=== PATIENT | female | born 1970 | race Caucasian/White ===

== ENCOUNTER 2020-03-25 15:34 | Emergency (ER) | payer MEDICAID ==
[~2020-03-25] VITALS: Ht 170.2 cm; Wt 62.0 kg
[2020-03-25 16:21] LABS: HEMATOCRIT 49.2 % (37.0-47.0); HEMOGLOBIN 17.1 g/dl (12.0-16.0); IMMATURE GRANULOCYTES 0.5 % (0.0-5.0); MEAN CELL VOLUME 86.3 fL CALC (80.0-100.0); MEAN CORPUSCULAR HGB CONC 34.8 g/dL CAL (32.0-36.0); NEUT# 9.83 thou/uL (2.00-7.15); RED BLOOD COUNT 5.7 mill/uL (4.20-5.60); RED CELL DISTRI WIDTH 13.1 % (11.5-15.5)
[2020-03-25 16:33] LABS: ALBUMIN 4.1 g/dL (3.2-5.0); ALKALINE PHOSPHATASE 107 u/l (38-126); ANION GAP 18 (6-22 (CALC)); BILIRUBIN, TOTAL 0.7 mg/dL (0.0-1.4); BUN 12 mg/dL (7-17); BUN/CREATININE RATIO 12 (12-20 (CALC)); CARBON DIOXIDE 18 mmol/l (22-30); CHLORIDE 99 mmol/l (95-108); GFR 59 ML/MIN (>=60 (CALC)); GFR FOR AFR.AMER. > 60 ML/MIN (>=60 (CALC)); LIPASE 223 u/l (23-300); POTASSIUM 2.9 mmol/l (3.5-5.1); SGOT/AST 20 u/l (14-36); SODIUM 132 mmol/l (137-146); TOTAL PROTEIN 6.9 g/dL (6.3-8.2)
[2020-03-25] MEDS ORDERED: TRAZODONE HYDR150 MG PO (17:06)
[2020-03-25] MEDS ORDERED: MESALAMINE DR1.2 GM PO (17:07)
[2020-03-25] MEDS ORDERED: DICYCLOMINE20 MG PO (17:08)
[2020-03-25] MEDS ORDERED: TOPIRAMATE ER50 MG PO (17:09)
[2020-03-25] MEDS ORDERED: BUSPIRONE10 MG PO (17:09)
[2020-03-25] MEDS ORDERED: ACAMPROSATE CA333 MG PO (17:10)
[2020-03-25] MEDS ORDERED: ANTI-DIARRHE2 M1 PO (17:11)
[2020-03-25] MEDS ORDERED: POTASSIUM CHLO10 ME1 PO (17:11)
[2020-03-25] MEDS ORDERED: VENLAFAXINE75 M2 PO (17:12)
[2020-03-25] MEDS ORDERED: IMITREX50 M1 PO (17:13)
[2020-03-25] MEDS ORDERED: VISTARIL 50MG C50 M1 PO (17:14)
[2020-03-25] MEDS ORDERED: BANOPHEN25 MG PO (17:15)
[2020-03-25] MEDS ORDERED: MELATONIN MAXIMU5 MG PO (17:15)
[2020-03-25 19:14] LABS: URINE BILIRUBIN - DIPSTICK NEGATIVE (NEGATIVE); URINE BLOOD DIPSTICK TRACE-INTACT (NEGATIVE); URINE COLOR YELLOW; URINE GLUCOSE - DIPSTICK NEGATIVE (NEGATIVE); URINE KETONE 15 mg/dL (NEGATIVE); URINE LEUK ESTERASE TRACE (NEGATIVE); URINE PH 6.5 (4.5-8.0); URINE PROTEIN - DIPSTICK NEGATIVE (NEG-TRACE); URINE SPECIFIC GRAVITY <=1.005; URINE UROBILINOGEN - DIPSTICK 0.2 E.U./dL (0.2)
[2020-03-25 19:16] LABS: URINE NITRITE - DIPSTICK POSITIVE (Negative)
[2020-03-25 19:26] LABS: URINE RBC 0-2 RBC/hpf (0-5); URINE SQUAMOUS EPITHELIAL CELL FEW EPI/hpf (0-FEW)
[2020-03-25] MEDS ORDERED: K-DUR/KLOR-CON20 MEQ PO (19:34)
[2020-03-25] MEDS ORDERED: LOMOTIL2.5 MG PO (19:34)
[2020-03-25] MEDS ORDERED: CIPROFLOXACN500 MG PO (19:34)
[2020-03-25 19:59] VITALS: BP 107/75
== END 2020-03-25 19:59 | disposition home or self-care (01) ==
LOC: ED 15:34
PROVIDERS: Student in an Organized Health Care Education/Training Program
DX: N39.0 Urinary tract infection, site not specified (principal); E87.6 Hypokalemia; I67.1 Cerebral aneurysm, nonruptured; B96.20 Unspecified Escherichia coli [E. coli] as the cause of diseases classified elsewhere
CPT/HCPCS: J2060; Q9967

== ENCOUNTER 2020-03-27 15:27 | Observation (INO) | payer MEDICAID ==
[~2020-03-27] VITALS: Ht 165.1 cm; Wt 58.0 kg
[~2020-03-27 15:27] MED LIST: ACAMPROSATE CA333 MG PO; ANTI-DIARRHE2 M1 PO; BANOPHEN25 MG PO; BUSPIRONE10 MG PO; CIPROFLOXACN500 MG PO; DICYCLOMINE20 MG PO; IMITREX50 M1 PO; K-DUR/KLOR-CON20 MEQ PO; LOMOTIL2.5 MG PO; MELATONIN MAXIMU5 MG PO; MESALAMINE DR1.2 GM PO; POTASSIUM CHLO10 ME1 PO; TOPIRAMATE ER50 MG PO; TRAZODONE HYDR150 MG PO; VENLAFAXINE75 M2 PO; VISTARIL 50MG C50 M1 PO
--- NOTE | 2020-03-27 15:35 | NUR ---
PATIENT TO ROOM VIA WHEELCHAIR AND PHYSICIAN AT BEDSIDE FOR EVAL
--- NOTE | 2020-03-27 15:47 | NUR ---
PT STATES HAVING INCREASED SOB, NAUSEA, DIZZINESS, AND HEADACHE FOR THE LAST TWO WEEKS. NIH 0. LUNGS CLEAR BI. AOX4. AFIBRILE. PT IS CRYING STATING THAT SHE IS SCARED. STATES HAVING PAIN 6/10 OF GENERALIZED ABD PAIN. WILL CONTINUE TO MONITOR
--- NOTE | 2020-03-27 16:30 | NUR ---
UPON REASSESSING, PT STATES THAT HER PAIN IS 6/10. ASKED FOR PO FLUIDS, NOTIFIED
[2020-03-27 16:35] LABS: HEMATOCRIT 45.2 % (37.0-47.0); HEMOGLOBIN 15.5 g/dl (12.0-16.0); IMMATURE GRANULOCYTES 0.6 % (0.0-5.0); MEAN CELL VOLUME 88.6 fL CALC (80.0-100.0); MEAN CORPUSCULAR HGB 30.4 pG CALC (26.0-32.0); MEAN CORPUSCULAR HGB CONC 34.3 g/dL CAL (32.0-36.0); NEUT# 7.55 thou/uL (2.00-7.15); RED BLOOD COUNT 5.1 mill/uL (4.20-5.60); RED CELL DISTRI WIDTH 13.1 % (11.5-15.5)
[2020-03-27 16:38] LABS: URINE BLOOD DIPSTICK TRACE-INTACT (NEGATIVE); URINE COLOR YELLOW; URINE GLUCOSE - DIPSTICK NEGATIVE (NEGATIVE); URINE KETONE >=80 mg/dL (NEGATIVE); URINE NITRITE - DIPSTICK NEGATIVE (Negative); URINE PROTEIN - DIPSTICK TRACE mg/dL (NEG-TRACE); URINE SPECIFIC GRAVITY 1.025; URINE UROBILINOGEN - DIPSTICK 0.2 E.U./dL (0.2)
[2020-03-27 16:41] LABS: URINE BILIRUBIN - DIPSTICK NEGATIVE (NEGATIVE); URINE LEUK ESTERASE SMALL (NEGATIVE)
[2020-03-27 16:56] LABS: URINE SQUAMOUS EPITHELIAL CELL MODERATE EPI/hpf (0-FEW)
[2020-03-27 17:12] LABS: ALBUMIN 3.9 g/dL (3.2-5.0); ALKALINE PHOSPHATASE 104 u/l (38-126); ANION GAP 18 (6-22 (CALC)); BILIRUBIN, TOTAL 0.5 mg/dL (0.0-1.4); BUN 8 mg/dL (7-17); BUN/CREATININE RATIO 8 (12-20 (CALC)); CARBON DIOXIDE 19 mmol/l (22-30); CHLORIDE 100 mmol/l (95-108); GFR 59 ML/MIN (>=60 (CALC)); GFR FOR AFR.AMER. > 60 ML/MIN (>=60 (CALC)); LIPASE 216 u/l (23-300); POTASSIUM 2.7 mmol/l (3.5-5.1); SGOT/AST 22 u/l (14-36); SODIUM 134 mmol/l (137-146); TOTAL PROTEIN 6.5 g/dL (6.3-8.2)
--- NOTE | 2020-03-27 17:13 | NUR ---
REPOSITIONED PT, DENIES ANY NEEDS AT THIS TIME
--- NOTE | 2020-03-27 18:30 | NUR ---
PT STATES THAT SHE HAS PAIN 01/03. NOTIFED
--- NOTE | 2020-03-27 19:14 | NUR ---
GAVE REPORT TO TONIO
[2020-03-27 20:00] VITALS: BP 106/63
--- NOTE | 2020-03-27 20:00 | NUR ---
PT ARRIVED TO MED SURG UNIT. APPEARS IN STABLE CONDITION. MALL MANAGER IN W/PT OBTAINING V/S. PT ORIENTED TO ROOM,CALL SYSTEM, LIGHTS AND BED.
--- NOTE | 2020-03-27 20:10 | NUR ---
HAND OFF REPORT WAS GIVEN TO DAMON BY NELLY BEFORE END OF SHIFT, PATIENT TAKEN TO INPATIENT TREATMENT ROOM 277 ON STRETCHER, NO C/O PAIN, NO S/S OF DISTRESS NOTED, RESPIRATIONS EVEN AND UNLABORED, PATIENT ON PORTABLE BORING MACHINE FEEDER, PATIENT MEDICATED FOR PAIN BEFORE BEING TAKEN TO INPATIENT TREATMENT ROOM.
--- NOTE | 2020-03-27 21:47 | NUR ---
Pt postassium infusion administered at this time. I educated pt that postassium will burn, but let me know if she observes any s/o edema or increased burning. Pt verbalized understanding.
--- NOTE | 2020-03-27 22:30 | NUR ---
PT CALLED TO REPORT THAT HER IV WAS BURNING TOO BAD. I TURNED THE POSTASSIUM DOWN TO 25, INFUSING WITH NORMAL SALINE, BUT PT CONTINUED TO CRY AND STATE "YOU HAVE TO STOP IT." IV potassium infusion discontinued at this time. site appears healthy, no s/o infiltration at this time or redness. cool pack provided. Will follow-up with attempts to restart infusion.
[2020-03-28] VITALS (9 sets, daily range): BP systolic 79–104; BP diastolic 38–61
--- NOTE | 2020-03-28 00:05 | NUR ---
UPON ENTERING ROOM, STAFF ANALYST IS OBTAINING V/S ASSESSED, I ASKED PT IF SHE WAS READY TO LET ME ADMINISTER K+ INFUSION. PT REPLIED, "I JUST WANT TO GO TO SLEEP." "MY STOMACH HURTS AGAIN AND I AM NAUSEOUS AGAIN." I DISCUSSED MEDICATIONS AND THE NEED FOR k+RIDER ADMINISTRATION. PT VERBALIZED UNDERSTANDING AND AGREED TO BE MEDICATED FOR PAIN AND NAUSEA AND TO REATTEMPT TO RUN THE K+. W/NS @250 AT THIS TIME. K+ RUNNING @25 AND NORMAL SALINE @250CC PER HR FOR COMFORT TO PT. ICEPACK PLACED ON PTS ARM. PT MEDICATED FOR NAUSEA AND PAIN PRIOR TO RESTARTING THE K+RIDER. PT INSTRUCTED TO CALL NEEDS ARISE.
--- NOTE | 2020-03-28 02:11 | NUR ---
PT SLEEPING, SHE AWOKE JUST ENOUGH TO RESPOND AND PROMPTLY RETURNED TO SLEEP. SHE STATED SHE WAS OKAY GETTING THE SECOND BAG ORDERED OF k+ IF I RUN IT SLOWLY I DID THE FIRST BAG ADMINISTERED @25MLS PER HR. aDMINISTERED SLOWLY W/NS @250. NO S/O DISTRESS NOTED AT THIS TIME. PT PROMPTLY RETURNED TO SLEEP PRIOR TO MY LEAVING THE ROOM
--- NOTE | 2020-03-28 04:52 | NUR ---
PT ASSESSED, COMMUNICATING AND WANTING TO "TRY AND USE THE RESTROOM" PT INSTRUCTED TO WAIT A LITTLE WHILE IF SHE CAN AND NOT TO GET UP BY HERSELF, I EXPLAINED TO HER THAT HER BP IS LOW AND SHE MAY FALL. KCL RUNNING @25 PER WHAT PT COULD TOLERATE AND IVF NS @250MLS/HR. PT C/O HEADACHE AND NOT BEING ABLE TO SLEEP. WILL FOLLOW-UP WITH BP RECHECK MANUAL.
--- NOTE | 2020-03-28 05:32 | NUR ---
I WAS CALLED TO PTS ROOM, SHE WAS UP TO RESTROOM WITH TIMBER SPRINKLER ASSISTING, PT IS CRYING C/O HEADACHE. I DISCUSSED WITH PT THAT SHE HAD VERY LOW BP AND I WAS UNABLE TO MEDICATE HER WITH MORPHINE YET. I ASKED PT ABOUT HER ABD PAIN/DENIED, DENIED NAUSEA AT THIS TIME. PT IS CRYING WANTING MORPHINE FOR HER HEAD. I OFFERED COOL PACK FOR COMFORT MEASURES/REFUSED. IVF ARE RUNNING 250MLS PER HR W/KCL RIDER @25MLS PER HR. PT LEFT IN BED W/LIGHTS DOWN AND TV OFF.
--- NOTE | 2020-03-28 07:00 | NUR ---
PT note Patient is screened for rehab intervention and no needs are identified at this time as she is continuing to be worked up by medical
--- NOTE | 2020-03-28 07:39 | NUR ---
RECIEVED REPORT FROM DMITRY JOSE. PT RESTING IN LOW FOWLERS POSITION UPON ENTERING ROOM. INTRODUCED SELF TO PT AND DISCUSSSED POC. PT IS A/O X3 BUT VERY EMOTIONAL. ASSESSMENT AND VITALS COMPLETED AT THIS TIME. BP 90/38, HR 86 ,O2 98% ON ROOM AIR. RESPIRATIONS ARE EVEN AND UNLABORED WITH NO SIGNS OF DISTRESS NOTED. LUNG SOUNDS ARE CLEAR. HEART RHYTHM IS NORMAL WITH TELE IN PLACE. BOWEL SOUNDS ARE ACTIVE IN ALL QUADRANTS, LAST REPORT BM 03/27/2020. RADIAL AND PEDAL PULSES ARE STRONG WITH NORMAL CAPILLARY REFILL. #20 IN RAC RUNNING WITH NS PER ORDER, SITE APPEARS HEALTHY AND PATENT.PT COMPLAINS OF 10/10 PAIN IN HEAD AND ABD. WRITTER INFORMED PT THAT OTHER MEDIACTION WOULD HAVE TO BE ORDERED DUE TO NOT BEING ABLE TO GIVE MORPHINE DUE TO BP. PT VERBAILZED UNDERSTANDING. BED PADDED DUE TO HISTORY OF SIEZURES. PT DENIES ANY ADDITIONAL NEEDS OR DISCOMFORTS. ALL SAFTEY PRECAUTIONS ARE IN PLACE WITH CALL LIGHT IN REACH. WILL CONTINUE TO MONITOR
[2020-03-28 09:02] LABS: ALKALINE PHOSPHATASE 83 u/l (38-126); BILIRUBIN, TOTAL 0.3 mg/dL (0.0-1.4); BUN 7 mg/dL (7-17); BUN/CREATININE RATIO 9 (12-20 (CALC)); CHLORIDE 112 mmol/l (95-108); CREATININE 0.8 mg/dL (0.5-1.0); GFR > 60 ML/MIN (>=60 (CALC)); GFR FOR AFR.AMER. > 60 ML/MIN (>=60 (CALC)); POTASSIUM 3.2 mmol/l (3.5-5.1); SGOT/AST 22 u/l (14-36); SODIUM 138 mmol/l (137-146); TOTAL PROTEIN 5.4 g/dL (6.3-8.2)
[2020-03-28 09:03] LABS: ALBUMIN 3.1 g/dL (3.2-5.0); ANION GAP 19 (6-22 (CALC)); CARBON DIOXIDE 10 mmol/l (22-30)
--- NOTE | 2020-03-28 10:12 | NUR ---
DR SYKES AT BEDSIDE DISCUSSING POC WITH PT
--- NOTE | 2020-03-28 11:04 | NUR ---
REASSESSMENT OF BP RESUTLING IN 104/51, HR 101. PT COMPLAINS OF 10/10 PAIN IN ABD AND HEAD. TORADAL TO BE ADMINISTERED. RESPRIATIONS ARE EVEN AND ANLABORED WITH NO SIGNS OF DISTRESS NOTED. PT IS VERY EMOTINAL. ICE PACK GIVEN TO PLACE ON HEAD. APPLE JUICE AND FRESH ICE ADMINISTERED. ALL SAFETY PRECAUTIONS REMAIN IN PLACE. WILL CONTINUE TO MONITOR
--- NOTE | 2020-03-28 11:18 | NUR ---
REASSESSMENT OF PAIN RESUTLING IN 02/03. PT STATES HEADACHE IS STILL PRESENT BUT NOT BAD. RESPIRATIONS ARE EVEN AND UNLABORED WITH NO DISTRESS NOTED. NEW ICE PACK GIVEN TO PT. ALL SFETY PRECAUTIONSA RE IN PLACE. WILL CONTINUE TO MONITOR
--- NOTE | 2020-03-28 13:00 | NUR ---
PT CALLED STATING "IM NOT FEELING WELL." UPON ENTERING ROOM. PT WAS SHOUTING "IT FEELS LIKE SOMEONE IS SITTING ON MY CHEST AND I CANT FEEL MY ARM OR FACE.NOBODY IS HELPING ME"WRITTER INFORMED PT THAT I WAS IN A DIFFERENT PT ROOM AND CAME SOON I COULD. KRISYT APOLIGIZED FOR WAIT. PT BEGAN PULLING ON CLOTHES. MD TO BE NOTIFIED. ALL SAFETY PRECAUTIONS ARE IN PLACE. WILL CONTINUE TO MONITOR
--- NOTE | 2020-03-28 14:01 | NUR ---
PT RESTING IN SEMI FOWLERS POSITION. WRITTER AT BEDSIDE. PT APPEARS TO BE CALMING DOWN. REPSIRATIONS ARE EVEN AND UNLABORED WITH NO SIGNS OF DISTRESS. ORDERED BOLUS RUNNING WITH EASE. SITE APPEARS HEALTHY AND PATENT. ALL SAFETY PRECAUTIONS ARE IN PLACE WITH CALL LIGHT IN REACH. WILL CONTINUE TO MONITOR
--- NOTE | 2020-03-28 14:55 | NUR ---
REASSESSMENT OF BP REUSTLING IN 93/64, HR 84. TORADOL AND XANAX TO BE ADMINISTERED TO ASSIST WITH PAIN AND ANXIETY. REPSIRATIONS ARE EVEN AND UNLABORE DWIHT NO SIGNS OF DISTRESS NOTED. ALL SAFGETY PRECAUTIONSA RE IN PLACE. WILL CONTINUE TO MONITOR.
--- NOTE | 2020-03-28 16:19 | NUR ---
PT SLEEPING ON LEFT SIDE UPON ENTERING ROOM. RESPIRATIONS ARE EVEN AND UNLABROED WITH NO SIGNS OF DISTRESS NOTED. NO SIGNS OF ANY PAIN OR DISCOMFORTS AT THIS TIME. ALL SAFETY PRECAUTIONS ARE IN PLACE. TELE MONITORING IN PLACE. WILL CONTINUE TO MONITOR
--- NOTE | 2020-03-28 19:13 | NUR ---
PT COMPLAINS OF PAIN IN ABD. PT REQUEST MORPHINE. WRITTER SUGGEST TORADOL.DUE TO BP BEING LOW. PT REFUSED STATING "TORADOL DOESNT TOUCH IT." PT ON PHONE STATING "I UNDERSTAND WHY YOU WOULDNT BRING YOUR DOG HERE. ITS JUST HORRIBLE. I CANT GET ANYTHING FOR PAIN OR ANXIETY. " DR BALL CALLED FOR NEW ORDER OF MORPHINE 2MG. AWAITING FOR VERIFICATION FROM PHARMACY.
[2020-03-28 19:17] LABS: ANION GAP 10 (6-22 (CALC)); BUN 4 mg/dL (7-17); BUN/CREATININE RATIO 6 (12-20 (CALC)); CHLORIDE 113 mmol/l (95-108); CREATININE 0.7 mg/dL (0.5-1.0); GFR > 60 ML/MIN (>=60 (CALC)); GFR FOR AFR.AMER. > 60 ML/MIN (>=60 (CALC)); POTASSIUM 2.9 mmol/l (3.5-5.1); SODIUM 138 mmol/l (137-146)
[2020-03-28 19:38] LABS: CARBON DIOXIDE 18 mmol/l (22-30)
--- NOTE | 2020-03-28 20:04 | NUR ---
RECEIEVED REPORT FROM JACQUELYN,NURSE. ASSESSMENT AND VITALS COMPLETED. RESPIRATIONS ARE STRONG BILATERALLY. LUNG SOUNDS ARE CLEAR. HEART RHYTHM IS NORMAL. PT HAS LOW BP 91/79; WILL MONITOR CLOSELY. BOWEL SOUNDS ARE HYPERACTIVE, LAST REPORTED BM 03/28/20. PT C/O OF NAUSEA AND VOMITING. RADIAL AND PEDAL PULSES ARE STRONG WITH NORMAL CPAILLARY REFILL. PT C/O OF PAIN, WAITING FOR PRN PAIN MEDICATION CONFIRMATION FROM [facility]. #20 IN RAC SALINE LOCKED, SITE APPEARS HEALTHY AND PATENT. ALL SAFETY AND ISOLATION PRECAUTIONS ARE IN PLACE. WILL CONTINUE TO MONITOR.
--- NOTE | 2020-03-29 00:09 | NUR ---
PT STILL IN SOME PAIN. PROVIDED ICE PACK. CALL CHAPA PALCED WITHIN REACH. WILL CONTINUE TO MONITOR.
--- NOTE | 2020-03-29 04:04 | NUR ---
PT REMAINS RESTING WITH EYES CLOSED. NO SIGNS OF DISTRESS. CALL LIGHT WITHIN REACH. WILL CONTINUE TO MONITOR.
[2020-03-29 04:40] VITALS: BP 97/62
--- NOTE | 2020-03-29 06:55 | NUR ---
REPORT RECEIVED FROM DMITRY GARCIA. PT RESTING IN BED, FREE FROM DISTRESS. SAFETY PRECAUTIONS IN PLACE. WILL CONTINUE TO MONITOR.
[2020-03-29 07:55] VITALS: BP 101/68
--- NOTE | 2020-03-29 07:55 | NUR ---
PT RESTING IN BED, PT SEEMS AGITATED. PT STATING "NO ONE HAS HELPED ME SINCE I'VE BEEN IN HERE. I'M NOT GETTING ALL OF MY HOME MEDS. I DON'T UNDERSTAND WHY I'M GETTING FLUIDS" GROUNDSKEEPER TRIED ASKING PT WHAT MEDICATIONS SHE WAS CONCERNED WITH NOT RECIEVING AND EXPLAINING WHET THE IV FLUIDS ARE FOR, PT CONTINUED TO TALK OVER GROUNDSKEEPER NOT ALLOWING GROUNDSKEEPER TO SOLVE ANY ISSUES. PT STATES "I WANT TO TALK TO CASE MANAGEMENT AND A PATENT ADVOCATE" CASE MANAGEMENT TO BE NOTIFIED. SAFETY PRECAUTIONS IN PLACE. WILL CONTINUE TO MONITOR.
[2020-03-29 10:08] VITALS: BP 133/97
--- NOTE | 2020-03-29 10:38 | NUR ---
MARI ANDRES AT BEDSIDE STARTING IV
[2020-03-29 10:40] VITALS: BP 111/61
--- NOTE | 2020-03-29 11:08 | NUR ---
PT RESTING IN BED, PT SEEMS LESS AGITATED. PT REPORTS HAVING PAIN OF A 8/10 IN HER HEAD AND ABDOMEN. PT TO BE MEDICATED. SAFETY PRECAUTIONS IN PLACE. WILL CONTINUE TO MONTIOR.
[2020-03-29 15:05] VITALS: BP 96/50
--- NOTE | 2020-03-29 15:17 | NUR ---
PT RESTING IN BED. REPORTS HAVING A HEAD ACHE RATING IT A 8/10, PT TO BE MEDICATED PER EMAR ORDERS. PT PROVIDED WITH COLD PACK AND APPLE JUICE PER REQUEST. SAFETY PRECAUTIONS IN PLACE WILL CONTINUE TO MONITOR
--- NOTE | 2020-03-29 16:02 | NUR ---
PT RESTING IN BED, NO S/S OF DISTRESS AT THIS TIME. SAFETY PRECAUTIONS IN PLACE. WILL CONTINUE TO MONITOR.
[2020-03-29 18:01] LABS: ANION GAP 8 (6-22 (CALC)); BUN 2 mg/dL (7-17); BUN/CREATININE RATIO 4 (12-20 (CALC)); CHLORIDE 117 mmol/l (95-108); CREATININE 0.6 mg/dL (0.5-1.0); GFR > 60 ML/MIN (>=60 (CALC)); GFR FOR AFR.AMER. > 60 ML/MIN (>=60 (CALC)); POTASSIUM 3.4 mmol/l (3.5-5.1); SODIUM 136 mmol/l (137-146)
[2020-03-29 18:04] LABS: CARBON DIOXIDE 14 mmol/l (22-30)
[2020-03-29 19:30] VITALS: BP 98/55
--- NOTE | 2020-03-29 20:03 | NUR ---
RECEIEVED REPORT FROM DMITRY VILLEDA. ASSESSMENT AND VITALS COMPLETED. RESPIRATIONS ARE STRONG BILATERALLY. LUNG SOUNDS ARE CLEAR. HEART RHYTHM IS NORMAL. b/P REMAINS LOW AT96/55. BOWEL SOUNDS ARE ACTIVE, LAST REPORTED BM 03/29/20. RADIAL AND PEDAL PULSES ARE STRONG WITH NORMAL CPAILLARY REFILL.#20 IN RAC RUNNING NS @ 20 KVO; SITE APPEARS HEALTHY AND PATENT. PT REPORTS HEADACHE; WILL PROVIDE PRN TYLENOL. ALSO PROVIDED REQUESTED COLD COMPRESS AND WARM BLANKET. PT ENCOURAGED TO REPORT ANY PAIN. ALL SAFETY PRECAUTIONS ARE IN PLACE. WILL CONTINUE TO MONITOR.
--- NOTE | 2020-03-30 00:03 | NUR ---
PT SEEN EYED CLOSED IN NO APPARENT DISTRESS OR DISCOMFORT. CALL CHAPA WITHIN REACH. WILL CONTINUE TO MONITOR.
[2020-03-30 00:10] VITALS: BP 85/56
--- NOTE | 2020-03-30 04:03 | NUR ---
PT RESTING IN BED, NO S/S OF DISTRESS AT THIS TIME. SAFETY PRECAUTIONS IN PLACE. WILL CONTINUE TO MONITOR.
[2020-03-30 04:50] VITALS: BP 96/62
[2020-03-30 04:59] LABS: ALBUMIN 2.5 g/dL (3.2-5.0); ALKALINE PHOSPHATASE 59 u/l (38-126); BILIRUBIN, TOTAL 0.2 mg/dL (0.0-1.4); CHLORIDE 118 mmol/l (95-108); CREATININE 0.6 mg/dL (0.5-1.0); GFR > 60 ML/MIN (>=60 (CALC)); GFR FOR AFR.AMER. > 60 ML/MIN (>=60 (CALC)); POTASSIUM 3.1 mmol/l (3.5-5.1); SGOT/AST 19 u/l (14-36); SODIUM 139 mmol/l (137-146); TOTAL PROTEIN 4.7 g/dL (6.3-8.2)
[2020-03-30 05:11] LABS: MEAN CELL VOLUME 89.5 fL CALC (80.0-100.0); MEAN CORPUSCULAR HGB 30.6 pG CALC (26.0-32.0); MEAN CORPUSCULAR HGB CONC 34.2 g/dL CAL (32.0-36.0); RED BLOOD COUNT 3.89 mill/uL (4.20-5.60); RED CELL DISTRI WIDTH 13.5 % (11.5-15.5)
[2020-03-30 05:16] LABS: ANION GAP 6 (6-22 (CALC)); CARBON DIOXIDE 18 mmol/l (22-30)
[2020-03-30 05:17] LABS: BUN 2 mg/dL (7-17); BUN/CREATININE RATIO 3 (12-20 (CALC))
[2020-03-30 05:20] LABS: HEMATOCRIT 34.8 % (37.0-47.0); HEMOGLOBIN 11.9 g/dl (12.0-16.0)
--- NOTE | 2020-03-30 06:50 | NUR ---
REPORT RECEIVED FROM DMITRY GARCIA. PT RESTING IN BED. NO S/S OF DISTRESS AT THIS TIME. SAFETY PRECAUTIONS IN PLACE. WILL CONTINUE TO MONITOR.
[2020-03-30 07:48] VITALS: BP 98/51
--- NOTE | 2020-03-30 07:48 | NUR ---
PT RESTING IN BED ALERT AND ORIENTED. RESPIRATIONS ARE EVEN AND UNLABORED ON RA. LUNGS SOUND CLEAR. PEDAL PULSES ARE STRONG. PT REPORTS HAVING A HEAD ACHE RATING IN A 7/10, PT TO BE MEDICATED PER EMAR ORDERS. SAFETY PRECAUTIONS IN PLACE. WILL CONTINUE TO MONITOR.
[2020-03-30 11:06] VITALS: BP 97/48
--- NOTE | 2020-03-30 11:42 | NUR ---
DR. BALL AND KENNETH CONDON AT THE BEDSIDE DISCUSSING PLAN OF CARE.
--- NOTE | 2020-03-30 14:40 | NUR ---
PT RESTING IN BED ALERT AND ORIENTED. PT MEDICATED PER EMAR ORDERS. PT PROVIDED WITH A WARM BLANKET AND APPLE JUICE PER REQUEST. SAFETY PRECAUTIONS IN PLACE. WILL CONTINUE TO MONITOR.-
[2020-03-30 15:15] VITALS: BP 109/50
[2020-03-30 16:12] LABS: ANION GAP 7 (6-22 (CALC)); BUN 2 mg/dL (7-17); BUN/CREATININE RATIO 3 (12-20 (CALC)); CARBON DIOXIDE 17 mmol/l (22-30); CHLORIDE 119 mmol/l (95-108); CREATININE 0.7 mg/dL (0.5-1.0); GFR > 60 ML/MIN (>=60 (CALC)); GFR FOR AFR.AMER. > 60 ML/MIN (>=60 (CALC)); SODIUM 139 mmol/l (137-146)
[2020-03-30 16:14] LABS: POTASSIUM 4.1 mmol/l (3.5-5.1)
--- NOTE | 2020-03-30 16:32 | NUR ---
PT RESTING IN BED NO S/S OF DISTRESS AT THIS TIME.
--- NOTE | 2020-03-30 20:06 | NUR ---
RECEIEVED REPORT FROM DMITRY VILLEDA. ASSESSMENT AND VITALS COMPLETED. RESPIRATIONS ARE STRONG BILATERALLY. LUNG SOUNDS ARE CLEAR. HEART RHYTHM IS NORMAL. BOWEL SOUNDS ARE ACTIVE; C/O OF ABDOMINAL PAIN. RADIAL AND PEDAL PULSES ARE STRONG WITH NORMAL CPAILLARY REFILL.#22 IN LFA, SALINE LOCKED, SITE APPEARS HEALTHY AND PATENT. PT REPORTS PAIN AND WILL RECEIVE PRN MEDICATION. PT DENIES ANY OTHER DISCOMFORTS AT THIS TIME. ENCOURAGED TO VERBALIZE ANY OTHER CONCERNS. WILL CONTINUE TO MONITOR.
[2020-03-31] VITALS: BP 115/61
--- NOTE | 2020-03-31 00:04 | NUR ---
PT SEEN EYED CLOSED IN NO APPARENT DISTRESS OR DISCOMFORT. CALL CHAPA WITHIN REACH. WILL CONTINUE TO MONITOR.
[2020-03-31 04:00] VITALS: BP 93/59
--- NOTE | 2020-03-31 04:02 | NUR ---
PT SEEN RESTING WITH EYES CLOSED. CALL CHAPA WITHIN REACH. WILL CONTINUR TO MONITOR.
[2020-03-31 05:31] LABS: HEMATOCRIT 31.1 % (37.0-47.0); HEMOGLOBIN 10.6 g/dl (12.0-16.0); MEAN CELL VOLUME 90.1 fL CALC (80.0-100.0); MEAN CORPUSCULAR HGB 30.7 pG CALC (26.0-32.0); MEAN CORPUSCULAR HGB CONC 34.1 g/dL CAL (32.0-36.0); RED BLOOD COUNT 3.45 mill/uL (4.20-5.60); RED CELL DISTRI WIDTH 13.7 % (11.5-15.5)
[2020-03-31 05:41] LABS: ALBUMIN 2.1 g/dL (3.2-5.0); ALKALINE PHOSPHATASE 52 u/l (38-126); ANION GAP 4 (6-22 (CALC)); BUN 3 mg/dL (7-17); BUN/CREATININE RATIO 5 (12-20 (CALC)); CARBON DIOXIDE 18 mmol/l (22-30); CHLORIDE 121 mmol/l (95-108); CREATININE 0.6 mg/dL (0.5-1.0); GFR > 60 ML/MIN (>=60 (CALC)); GFR FOR AFR.AMER. > 60 ML/MIN (>=60 (CALC)); POTASSIUM 3.7 mmol/l (3.5-5.1); SGOT/AST 19 u/l (14-36); SODIUM 139 mmol/l (137-146); TOTAL PROTEIN 4.1 g/dL (6.3-8.2)
--- NOTE | 2020-03-31 07:30 | NUR ---
REPORT RECEIVED FROM DMITRY GARCIA. PT RESTING IN BED SEMI FOWLERS; ALERT AND ORIENTED. C/O 7/10 CRAMPING PAIN TO UPPER ABDOMEN; SCHEDULED BENTYL GIVEN. RESPIRATIONS EVEN AND UNLABORED ON ROOM AIR. DENIES NAUSEA AND SOB. TOLERATING SOFT DIET, BUT DOES HAVE LOOSE BOWEL MOVEMENTS IMMEDIATELY AFTER. LUNGS ARE CLEAR. PLAN OF CARE REVIEWED. PT ENCOURAGED TO VERBALIZE CONCERNS. STATES UNDERSTANDING. SAFETY MEASURES IN PLACE. CALL LIGHT WITHIN REACH.
[2020-03-31 07:42] VITALS: BP 94/49
--- NOTE | 2020-03-31 09:00 | NUR ---
XANAX GIVEN WITH AM MEDS PER REQUEST FOR ANXIETY.
--- NOTE | 2020-03-31 09:08 | NUR ---
IV site discontinued, cath intact. No edema , no redness, has some pain with flush and site is leaking. Cipro changed from IV to PO.
--- NOTE | 2020-03-31 09:49 | NUR ---
PO CIPRO GIVEN ALONG WITH IMITREX FOR 8/10 HEADACHE.
[2020-03-31 10:30] VITALS: BP 114/76
[2020-03-31] MEDS ORDERED: IMITREX50 M1 PO (12:15)
--- NOTE | 2020-03-31 12:20 | NUR ---
Discharge instructions given. Patient verbalizes understanding of same. Discharged in stable condition via Wheelchair to Home with family. All belongings sent with pt.
== END 2020-03-31 13:40 | disposition home or self-care (01) ==
LOC: ED 15:27 → ED-I 16:22 → ED 16:22 → ED-I 17:16 → ED 17:32 → MS2 17:33
PROVIDERS: Family Medicine; Internal Medicine; Nurse Practitioner Family; ADMIT Internal Medicine; ATTEND Internal Medicine
DX: K52.839 Microscopic colitis, unspecified (principal); N39.0 Urinary tract infection, site not specified; G43.909 Migraine, unspecified, not intractable, without status migrainosus; E87.6 Hypokalemia; R94.31 Abnormal electrocardiogram [ECG] [EKG]; D25.9 Leiomyoma of uterus, unspecified; F17.200 Nicotine dependence, unspecified, uncomplicated; F10.11 Alcohol abuse, in remission; Z20.828 Contact with and (suspected) exposure to other viral communicable diseases
CPT/HCPCS: G0378; J3475